=== PATIENT | male | born 1960 | race Caucasian/White ===

== ENCOUNTER 2022-10-04 10:45 | Outpatient (CLI) | payer OTHER ==
[2022-10-04 13:14] LABS: #Basophils 0.1 10x3/uL (0.0-0.2); #Eosinphils 0.1 10x3/uL (0.0-0.5); #Monocytes 0.5 10x3/uL (0.0-1.1); #Neutrophils 4.5 10x3/uL (1.5-8.4); %Basophils 0.7 % (0.0-2.0); %Eosinophils 1.9 % (0.0-6.0); %Lymphocytes 30.3 % (18.0-47.0); %Monocytes 6.8 % (0.0-10.0); %Neutrophils 59.9 % (40.0-75.0); Hemoglobin 11.6 g/dL (13.5-17.5); Mean Corpuscular HGB CONC 33.2 g/dL (32.0-36.0); Mean Corpuscular Hemoglobin 31.2 pg (27.0-33.0); Mean Corpuscular Volume 93.8 fl (81.2-95.1); Mean Platelet Volume 10.9 fl (7.4-10.4); Platelet Count 304 10x3/uL (150-450); RBC Distribution Width 13.7 % (11.5-14.5); Red Blood Cell (RBC) Count 3.72 10x6/uL (4.32-5.72); White Blood Cell (WBC) Count 7.5 10x3/uL (3.5-10.5)
[2022-10-04 13:29] LABS: Prothrombin Time 11.2 sec (9.5-12.1)
[2022-10-04 13:34] LABS: Anion Gap 17 mmol/L (10-20); BUN (Urea Nitrogen) 12 mg/dL (8.4-25.7); Calc. Creatinine Clearance 0 mL/min (70-130); Calcium 9.3 mg/dL (7.8-10.44); Carbon Dioxide 26 mmol/L (23-31); Chloride 100 mmol/L (98-107); Estimated GFR 70; Glucose 113 mg/dL (80-115); Potassium 3.9 mmol/L (3.5-5.1); Sodium 139 mmol/L (136-145)
== END 2022-10-04 10:46 | disposition home or self-care (01) ==
LOC: LABBT 10:45
PROVIDERS: ATTEND Orthopaedic Surgery
DX: Z01.812 Encounter for preprocedural laboratory examination (principal); M17.12 Unilateral primary osteoarthritis, left knee
CPT/HCPCS: 80048; 85025; 85610; 87081

== ENCOUNTER 2022-10-09 06:14 | Observation (INO) | payer OTHER ==
[2022-10-05 11:54] VITALS: BMI 30.1
[2022-10-09] MEDS ORDERED: Vancomycin (BATCH) 1.5 GRAM/300 ML BAG ONE (07:08)
[2022-10-09] MEDS ORDERED: Tranexamic Acid 1,000 MG/10 ML VIAL ONE (07:08)
[2022-10-09] MEDS ORDERED: Sodium Chloride 0.9% 100 ML ONE ×2 (07:08→08:31)
[2022-10-09] MEDS ORDERED: Midazolam HCl 2 mg/2 ml Vial ONE (07:33)
[2022-10-09] MEDS ORDERED: Bupivacaine PF 0.5% 30 ML VIAL ONE ×2 (07:33→08:45)
[2022-10-09] MEDS ORDERED: FENTANYL 50 MCG/ML 1 ML VIAL ONE (07:33)
[2022-10-09 07:52] LABS: SARS-CoV-2 NAA Rapid Test Not Detected (NotDetected)
[2022-10-09] MEDS ORDERED: CEFAZOLIN 2 GM VIAL ONE (08:31)
[2022-10-09] MEDS ORDERED: Fentanyl 100 MCG/2 ML VIAL IV PRN (08:35)
[2022-10-09] MEDS ORDERED: HYDROcodone/Acetaminophen 10/325 mg Tablet PO PRN ×2 (08:45)
[2022-10-09] MEDS ORDERED: Ondansetron PF 4 MG/2 ML Vial IVP PRN ×2 (08:45→08:46)
[2022-10-09] MEDS ORDERED: Promethazine HCl 25 MG/ML VIAL IM PRN ×3 (08:45→09:56)
[2022-10-09] MEDS ORDERED: traMADol HCl 50 MG TAB PO PRN ×2 (08:45)
[2022-10-09] MEDS ORDERED: Zolpidem Tartrate 5 MG TAB PO PRN ×2 (08:45→08:46)
[2022-10-09] MEDS ORDERED: Ropivacaine 0.2% 550 ML 550 ML NERVE BLCK SCH (08:45)
[2022-10-09] MEDS ORDERED: diphenhydrAMINE 25 MG CAP PO PRN (08:46)
[2022-10-09] MEDS ORDERED: Acetaminophen 325 MG TAB PO PRN (08:46)
[2022-10-09] MEDS ORDERED: Furosemide 20 MG TAB PO PRN (08:47)
[2022-10-09] MEDS ORDERED: Multivitamin W/ Minerals 1 TAB PO SCH (09:00)
[2022-10-09] MEDS ORDERED: Non-Formulary Item 1 EACH (Budesonide/Formoterol Fumarate [Budesonide-Formoterol 160-4.5] IH SCH (09:00)
[2022-10-09] MEDS ORDERED: Non-Formulary Item 1 EACH (Esomeprazole Magnesium [Nexium] 20 MG Capsule.Dr) PO SCH (09:00)
[2022-10-09] MEDS ORDERED: Non-Formulary Item 1 EACH (Multivit-Min/Fa/Lycopen/Lutein [Centrum Silver Men Tablet] 1 E PO SCH (09:00)
[2022-10-09] MEDS ORDERED: Non-Formulary Item 1 EACH (Cyanocobalamin (Vitamin B-12) [Vitamin B-12] 1,000 MCG Capsule PO SCH (09:00)
[2022-10-09] MEDS ORDERED: Non-Formulary Item 1 EACH (Hydralazine Hcl [Hydralazine Hcl] 50 MG Tablet) PO SCH (09:00)
[2022-10-09] MEDS ORDERED: Aspirin Chewable 81 MG TAB PO SCH (09:00)
[2022-10-09] MEDS ORDERED: Non-Formulary Item 1 EACH (Amlodipine Besylate/Benazepril [Lotrel 10-40 Mg Capsule] 1 EAC PO SCH (09:00)
[2022-10-09] MEDS ORDERED: Aspirin 81 mg Enteric Coated Tablet PO SCH (09:00)
[2022-10-09] MEDS ORDERED: fentaNYL PF 100 MCG/2 ML SYRINGE ONE ×2 (09:06)
[2022-10-09] MEDS ORDERED: Lidocaine 1% PF 5 ML VIAL ONE (09:17)
[2022-10-09] MEDS ORDERED: Ketorolac Tromethamine 30 MG/ML VIAL ONE (09:17)
[2022-10-09] MEDS ORDERED: Ondansetron PF 4 MG/2 ML Vial ONE (09:17)
[2022-10-09] MEDS ORDERED: PROPOFOL 200 MG/20 ML VIAL ONE (09:17)
[2022-10-09] MEDS ORDERED: Bupivacaine HCl 0.5%/Epinephrine 1:200,000/PF 30 ml Vial ONE (09:17)
[2022-10-09] MEDS ORDERED: HYDROmorphone 2 MG/ML VIAL SLOW IVP PRN (09:56)
[2022-10-09] MEDS ORDERED: HYDROmorphone 2 MG/ML VIAL ONE (10:01)
[2022-10-09] MEDS ORDERED: Ipratropium/Albuterol 3 ML NEB ONE (10:40)
[2022-10-09] MEDS ORDERED: Fentanyl 250 MCG/5 ML VIAL ONE (10:46)
[2022-10-09] MEDS ORDERED: HYDROmorphone 0.5 MG/0.5 ML SYRINGE ONE ×2 (10:59→11:13)
[2022-10-09] MEDS: Folic Acid 1 MG TAB PO SCH (11:36)
[2022-10-09] MEDS: Loratadine 10 MG TAB PO SCH (11:36)
[2022-10-09] MEDS: Fenofibrate Nanocrystallized 145 MG TAB PO SCH (11:36)
[2022-10-09] MEDS: Ferrous Gluconate 324 MG TAB PO SCH ×2 (11:36→20:18)
[2022-10-09] MEDS: Senokot S 8.6-50 MG TAB PO SCH ×2 (11:36→20:18)
[2022-10-09] MEDS ORDERED: Ketorolac Tromethamine 30 MG/ML VIAL IVP SCH (12:00)
[2022-10-09] MEDS: Sodium Chloride 0.9% 1,000 ML IV SCH ×2 (12:10→20:12)
[2022-10-09] MEDS: CEFAZOLIN 2 GM in Sodium Chloride 0.9% 100 ML IVPB SCH ×2 (13:03→20:21)
[2022-10-09] MEDS: Ketorolac Tromethamine 30 MG/ML VIAL IVP SCH ×2 (16:00→20:26)
[2022-10-09] MEDS: Mometasone 200 MCG/Formoterol 5 MCG 120 PUFF INHALER INH SCH (19:18)
[2022-10-09] MEDS: Aspirin Chewable 81 MG TAB PO SCH (20:18)
[2022-10-09] MEDS: hydrALAZINE 25 MG TAB PO SCH (20:19)
[2022-10-09] MEDS ORDERED: Atorvastatin Calcium 40 MG TAB PO SCH (21:00)
[2022-10-09] MEDS ORDERED: DOXAZOSIN MESYLATE 8 MG PO SCH (21:00)
[2022-10-09] MEDS ORDERED: Non-Formulary Item 1 EACH (Atorvastatin Calcium [Lipitor] 80 MG Tablet) PO SCH (21:00)
[2022-10-09] MEDS ORDERED: DOXAZOSIN MESYLATE 8 MG DT SCH (21:00)
[2022-10-10] MEDS: Ketorolac Tromethamine 30 MG/ML VIAL IVP SCH ×2 (02:57→09:32)
[2022-10-10] MEDS: Sodium Chloride 0.9% 1,000 ML IV SCH (04:11)
[2022-10-10 04:59] VITALS: TEMP 98.9
[2022-10-10 06:06] LABS: Hemoglobin 10.2 g/dL (14.0-18.0); Mean Corpuscular HGB CONC 33.8 g/dL (32.0-36.0); Mean Corpuscular Volume 97.7 fl (78.0-98.0); Mean Platelet Volume 7.7 fL (7.4-10.4); Platelet Count 229 10x3/uL (130-400); RBC Distribution Width 12.8 % (11.5-14.5); Red Blood Cell (RBC) Count 3.08 mill/uL (4.70-6.10); White Blood Cell (WBC) Count 7.5 10x3/uL (4.8-10.8)
[2022-10-10] MEDS: Mometasone 200 MCG/Formoterol 5 MCG 120 PUFF INHALER INH SCH (07:06)
[2022-10-10 08:59] VITALS: BP 159/75
[2022-10-10] MEDS ORDERED: Amlodipine 5 mg/Benazepril 20 mg CAP PO SCH (09:00)
[2022-10-10] MEDS ORDERED: Multivitamin W/ Minerals 1 TAB PO SCH (09:00)
[2022-10-10] MEDS ORDERED: Aspirin Chewable 81 MG TAB PO SCH (09:00)
[2022-10-10] MEDS ORDERED: Cyanocobalamin (Vitamin B-12) 1,000 MCG TAB PO SCH (09:00)
[2022-10-10] MEDS: hydrALAZINE 25 MG TAB PO SCH (09:30)
[2022-10-10] MEDS: Senokot S 8.6-50 MG TAB PO SCH (09:30)
[2022-10-10] MEDS: Aspirin Chewable 81 MG TAB PO SCH (09:31)
[2022-10-10] MEDS: Fenofibrate Nanocrystallized 145 MG TAB PO SCH (09:31)
[2022-10-10] MEDS: Folic Acid 1 MG TAB PO SCH (09:32)
[2022-10-10] MEDS: Ferrous Gluconate 324 MG TAB PO SCH (09:32)
[2022-10-10] MEDS: Loratadine 10 MG TAB PO SCH (09:32)
== END 2022-10-10 10:30 | disposition home or self-care (01) ==
LOC: SDC 06:14 → SJJU 08:46
PROVIDERS: ADMIT Orthopaedic Surgery; ATTEND Orthopaedic Surgery
PROC: 0SRD0J9 Replacement of Left Knee Joint with Synthetic Substitute, Cemented, Open Approach (ICD-10-PCS; principal; 2022-10-09)
DX: M17.12 Unilateral primary osteoarthritis, left knee (principal); D62 Acute posthemorrhagic anemia; I10 Essential (primary) hypertension; E78.00 Pure hypercholesterolemia, unspecified; K21.9 Gastro-esophageal reflux disease without esophagitis; Z79.899 Other long term (current) drug therapy; Z88.0 Allergy status to penicillin; Z20.822 Contact with and (suspected) exposure to COVID-19
CPT/HCPCS: 36415; 85027; 96365; 96372; 96375; 96376; A4306; C1713; C1776; G0378; J1170; J1885; J2250; J2405; J2550; J2704; J2795; J3010; J3370; J3490; J7620; S0020; U0002